=== PATIENT | male | born 1945 | race Caucasian/White ===

== ENCOUNTER 2023-09-21 14:18 | Emergency (ER) | payer OTHER ==
--- OUTSIDE RECORDS SUMMARY | 2023-09-21 14:21 | XMS REPORT | Continuity of Care Document ---
Author Name Unknown Address [address] [place] [address] [facility] thconnect Address [address] [place] [address] Care Team Providers Care Carton Maker Name Role [facility] Primary Car e Physician KIKI ASTUDILLO MEDICAID BILLING CLERK Attending Clinician Unavail able Doctor Unassigned, Shiro Attending Clinician U navailable RADIOLOGY Attending Clinician Unavailable Radiology Attending Clinician Unavailable Patricia Alberts Attending Clinician Unavailab MINI Post Admitting Clinician Unavailab le Payers Payer Name Policy Type Policy Number Effective Date Expirati on Date Source Allergies, Adverse Reactions, Alerts Allergy Name Allergy Type Status Severity Reaction(s) Onset Date Inactive Date Treating Clinician Comments Source NO KNOWN ALLERGIE S Drug Class Active [facility] Social History Social Habit Start Date Stop Date Quantity Comments Source Sexual orientation [facility] Sex Assigned At 1945 00:00:00 1945 00:00:00 [facility] Smoking Status Start Date Stop Date Source Tobacco smoking consumption unknown [facility] Procedures Procedure Date / Time Performed Performing Clinician Source AUTHORIZATION FOR RELEASE OF PHI 2023-06-03 06:01:00 Doctor Unassigned, Shiro [facility] AUTHORIZATION FOR RELEASE OF PHI 2023-06-01 06:01:00 Doctor Unassigned, Shiro [facility] MR LUMBAR SPINE WO CONTRAST 2023-05-31 22:05:33 Requisition, Paper [facility] Encounters Start Date/Time End Date/Time Encounter Type Admission Type Attending [facility] Care Department Encounter ID Source 2023-07-14 13:41:00 2023-07-14 13:41:00 Outpatient KIKI VASQUEZ [facility] [id number] [facility] 2023-06-03 00:00:00 2023-06-03 00:00:00 Orders Only Doctor Unassigned, Shiro [facility] [id number] [facility] 2023-06-01 00:00:00 2023-06-01 00:00:00 Orders Only Doctor Unassigned, Shiro [facility] [id number] [facility] 2023-05-31 15:08:26 2023-05-31 23:59:00 Outpatient R RADIOLOGY [facility] [id number] [facility] 2023-05-31 15:00:00 2023-05-31 23:59:00 Hospital Encounter Radiology [facility] [id number] [facility] 2023-03-18 14:30:00 2023-03-18 16:50:00 Emergency ER Patricia Alberts [facility] [id number] [facility] 2023-03-18 14:30:00 2023-03-18 16:50:00 emergency [facility] [id number] Results Test Description Test Time Test Comments Results Resul t Comments Source MR LUMBAR SPINE WO CONTRAST 9 22:23:07 MR LUMBAR SPINE WO CONTRAST HISTORY: ?Wo contrast COMPARISON: None. TECHNIQUE: MRI of the lumbar spine was done without contrast on 1.5 Teslamagnet. FINDINGS: Mild exaggeration of the normal lumbar lordosis. Grade I retrolisthesis ofL3 over L4 and L5 over S1 otherwise, the vertebral bodies are normal inheight and in alignment. The conus medullaris terminates at L1 level. Thecauda equina nerve roots are not crowded. Diffuse disc desiccation seen. There is mild to moderate disc height lossseen at L3-L4 and L5-S1. Multilevel scattered Schmorl's nodes. L5-S1 Modic type joint degeneration.Multilev el scattered small hemangiomas. The background marrow signal isotherwise unremarkable. L1-L2: Moderate facet arthrosis and ligamentum flavum thickening with nosignificant spinal canal stenosis or neural foraminal narrowing. L2-L3: Concentric disc bulge with right and left foraminal discprotrusions, moderate facet arthrosis and ligamentum flavum thickening thatresults in mild bilateral right more than left neural foraminal narrowingand mild spinal canal stenosis. Nonspecific bilateral facet joint effusion. L3-L4: Diffuse disc bulge with moderate facet arthrosis and ligamentumflavum thickening that results in moderate bilateral right more than leftneural foraminal narrowing and moderate spinal canal stenosis. L4-L5: Diffuse disc bulge asymmetric to the left superior facet arthrosisand ligamentum flavum thickening that results in mild to moderate spinalcanal stenosis, mild right and moderate left neural foraminal narrowing. L5-S1: Diffuse disc bulge with medium-sized left subarticular discprotrusion, moderate facet arthrosis that results in moderate left and mildright neural foraminal narrowing and no significant spinal canal stenosis.There is moderate left subarticular zone narrowing. Bilateral simple appearing renal cortical cysts seen. [facility]
[2023-09-21] MEDS ORDERED: NA CHLORIDE 0.9% 1,000 ML ONE (14:37)
[2023-09-21 14:46] LABS: Absolute Eosinophils 0.1 K/uL (0-0.5); Absolute Lymphocytes (CBC) 1.5 K/uL (0.7-4.9); Absolute Monocytes 0.5 K/uL (0.1-1.3); Absolute Neutrophil 2.8 K/uL (1.8-8.0); Basophils % 0.5 % (0-1.3); Eosinophils % 1.4 % (0-4.4); Hematocrit 39.7 % (39.6-49.0); Hemoglobin 13.5 g/dL (13.6-17.9); Lymphocytes % 31.2 % (15.3-44.8); MCH 29.9 pg (27.0-35.0); MCV 87.8 fL (80-100); MPV 9.6 fL (7.6-11.3); Monocytes % 9.4 % (3.3-12.3); Neutrophils % 57.5 % (41.7-73.7); Nucleated Red Blood Cells % 0.2 % (0-0); Platelets 150 thou/uL (152-406); RBC Red Blood Cell Count 4.52 M/uL (4.33-5.43); Red Cell Distribution Width 14.5 % (12.1-15.2)
[2023-09-21 14:47] LABS: PT Prothrombin Time 11.6 SECONDS (9.5-12.5); Protime INR 1.06
--- NOTE | 2023-09-21 15:08 | RAD REPORT ---
EXAM DESCRIPTION: RAD - Chest Single View - 09/21/2023 2:57 pm CLINICAL HISTORY: syncope Chest pain. COMPARISON: No comparisons FINDINGS: Portable technique limits examination quality. The lungs are mildly emphysematous but grossly clear. The heart is normal in size. No displaced fract ures. IMPRESSION: No acute intrathoracic process suspected.
[2023-09-21 15:21] LABS: Albumin 3.5 g/dL (3.4-5.0); Albumin/Globulin Ratio 1.3 (1.1-1.8); Bilirubin Direct 0.4 mg/dL (0-0.2); Bilirubin Indirect, Calculated 1.2 mg/dL (0.2-0.8); Bilirubin Total 1.6 mg/dL (0.2-1.0); Globulin 2.8 g/dL (2.3-3.5); Magnesium 2.1 mg/dL (1.6-2.4); Protein, Total 6.3 g/dL (6.4-8.2); Troponin High Sensitivity 4.8 pg/mL (<58.9)
--- NOTE | 2023-09-21 15:23 | RAD REPORT ---
EXAM DESCRIPTION: CT - Head Brain Wo Cont - 09/21/2023 3:15 pm CLINICAL HISTORY: SYNCOPE Headache, drowsiness, visual disturbance. COMPARISON: No comparisons TECHNIQUE: All CT scans are performed using dose optimization technique as appropriate and may inclu de automated exposure control or mA/KV adjustment according to patient size. FINDINGS: No intracranial hemorrhage, hydrocephalus or extra-axial fluid collection.No areas of brai n edema or evidence of midline shift. Mild vertebral atherosclerosis. The paranasal sinuses and mastoids are clear. The calvarium is intact. IMPRESSION: No acute intracranial abnormality.
--- NOTE | 2023-09-21 16:01 | ER ---
Nurse's Notes [facility] Name: Steven Joseph Age: 77 yrs Sex: Male : 1945 Arrival Date: 09/21/2023 Time: 14:18 Bed 4 Private MD: Diagnosis: Near syncope, dehydration Presentation: 09/20 14:21 Chief complaint: Patient states: Vision problems "seeing purple" while at [place] [id number] resolved by now. Generalized weakness. States it did happened yesterday around the same time but seemed to resolved quicker. 14:21 Coronavirus screen: Vaccine status: Patient reports receiving the 2nd dose of the covid nj1 vaccine. Ebola Screen: Patient denies travel to an Ebola-affected area in the 21 days before illness onset. Initial Sepsis Screen: Does the patient meet any 2 criteria? No. Patient's initial sepsis screen is negative. Does the patient have a suspected source of infection? No. Patient's initial sepsis screen is negative. Risk Assessment: Do you want to hurt yourself or someone else? Patient reports no desire to harm self or others. Onset of symptoms was September 20, 2023. 14:21 Method Of Arrival: Wheelchair nj 14:21 Acuity: DINAH 2 nj1 Historical: - Allergies: 14:33 No Known Allergies; nj1 - PMHx: 14:33 Hypertensive disorder; Diabetes mellitus; nj1 14:33 Neuropathy; Hypercholesterolemia; nj1 - Immunization history:: Client reports receiving the 2nd dose of the Covid vaccine. - Infectious Disease History:: Denies. - Social history:: Smoking status: Patient denies any tobacco usage or history of. Screenin:20 [facility] ED Fall Risk Assessment (Adult) History of falling in the last 3 months, kc6 including since admission No falls in past 3 months (0 pts) Confusion or Disorientation No (0 pts) Intoxicated or Sedated No (0 pts) Impaired Gait No (0 pts) Mobility Assist Device Used No (0 pt) Altered Elimination No (0 pt) Score/Fall Risk Level 0 - 2 = Low Risk. Abuse screen: Denies threats or abuse. Denies injuries from another. Nutritional screening: No deficits noted. Tuberculosis screening: No symptoms or risk factors identified. Assessment: 14:20 General: Appears in no apparent distress. comfortable, well groomed, well developed, kc6 Behavior is calm, cooperative, appropriate for age. Pain: Denies pain. Neuro: Level of Consciousness is awake, alert, obeys commands, Oriented to person, place, time, situation, Appropriate for age Hydraulic Assembler are equal bilaterally Moves all extremities. Full function Gait is steady, Speech is normal, Facial symmetry appears normal, Pupils are PERRLA, Intact Babinski is positive Reports blurred vision dizziness, a syncopal episode weakness. Cardiovascular: Denies chest pain, Heart tones S1 S2 present Capillary refill < 3 seconds. Respiratory: Airway is patent Trachea midline Respiratory effort is even, unlabored, Respiratory pattern is regular, symmetrical. GI: No signs and/or symptoms were reported involving the gastrointestinal system. : No signs and/or symptoms were reported regarding the genitourinary system. EENT: No signs and/or symptoms were reported regarding the EENT system. Derm: No signs and/or symptoms reported regarding the dermatologic system. Skin is intact, is healthy with good turgor, Skin is dry, Skin is pale, Skin temperature is warm. Musculoskeletal: No signs and/or symptoms reported regarding the musculoskeletal system. Circulation, motion, and sensation intact. Capillary refill < 3 seconds, Range of motion: intact in all extremities. 14:23 Reassessment: Dr. Owusu notified of pts BP 70/47. verbal orders received to admin 1L kc6 bolus of NS. 14:51 Reassessment: pt reports not taking his BP this AM before taking his BP medicine. pt to kc6 CT via stretcher. Vital Signs: 14:21 BP 133 / 101; Pulse 57; Resp 18; Temp 96.9(TE); Pulse Ox 98% on R/A; Weight 107.95 kg; nj1 Height 5 ft. 9 in. ; 14:23 BP 70 / 47; Pulse 55; Resp 16 S; Pulse Ox 97% on R/A; kc6 14:25 BP 73 / 58; Pulse 53; Resp 16 S; Pulse Ox 96% on R/A; kc6 14:30 BP 86 / 50; Pulse 52; Resp 14 S; Pulse Ox 97% on R/A; kc6 14:50 BP 90 / 54; Pulse 57; Resp 16 S; Temp 97.8(O); Pulse Ox 96% on R/A; Pain 0/10; kc6 15:25 BP 103 / 53; Pulse 52; Resp 16; Pulse Ox 97% ; ko1 15:28 BP 101 / 54 RA Supine (man/reg); Pulse 48; kc6 15:28 BP 94 / 55 RA Sitting (auto/reg); Pulse 52; kc6 15:28 BP 103 / 53 RA Standing (auto/reg); Pulse 54; kc6 14:21 Body Mass Index 35.15 (107.95 kg, 175.26 cm) nj1 14:50 Pain Scale: Adult kc6 ED Course: 14:18 Patient arrived in ED. im 14:20 Inserted saline lock: 20 gauge in right forearm, using aseptic technique. Blood kc6 collected. 14:20 Patient has correct armband on for positive identification. Placed in gown. Bed in low kc6 position. Call light in reach. Side rails up X2. Adult w/ patient. Client placed on continuous cardiac and pulse oximetry monitoring. NIBP monitoring applied. eeg tech on. Door closed. Noise minimized. Lights dimmed. Pillow given. 14:22 Promise Owusu MD is Attending Physician. sp3 14:23 Montserrat Rowan, RN is Primary Nurse. kc6 14:31 EKG done, by ED staff, reviewed by Promise Owusu MD. em1 14:33 Triage completed. nj1 14:35 Arm band placed on. nj1 14:59 XRAY Chest (1 view) In Process Unspecified. EDMS 15:16 CT Head Brain wo Cont In Process Unspecified. EDMS 15:25 Provided Education on: call light. ko1 16:18 No provider procedures requiring assistance completed. IV discontinued, intact, kc6 bleeding controlled, No redness/swelling at site. Pressure dressing applied. Administered Medications: 14:40 Drug: NS 0.9% IV 1000 ml IV at 1 bolus Per protocol; 1000 mL bolus Route: IV; Rate: 1 kc6 bolus; Site: right forearm; 16:07 Follow up: Response: No adverse reaction; IV Status: Completed infusion; IV Intake: kc6 1000ml Medication: 15:25 VIS not applicable for this client. ko1 Intake: 16:07 IV: 1000ml; Total: 1000ml. kc6 Outcome: 16:01 Discharge ordered by . sp3 16:18 Discharged to home via wheelchair, with family, with significant other, kc6 16:18 Condition: improved 16:18 Discharge instructions given to patient, family, significant other, Instructed on discharge instructions, follow up and referral plans. Demonstrated understanding of instructions, follow-up care, 16:18 Patient left the ED. kc6 Signatures: Dispatcher [employer] Herbert Mancia em1 Promise Owusu MD MD sp3 Montserrat Rowan, RN RN kc6 Cristel Reeves RN RN ko1 Karon Cardona RN RN nj1 Leigh Ann Stuart
--- NOTE | 2023-09-21 16:01 | EDPHYS ---
Physician Documentation [facility] Name: Steven Joseph Age: 77 yrs Sex: Male : 1945 Arrival Date: 09/21/2023 Time: 14:18 Bed 4 Private MD: ED Physician Promise Owusu HPI: 09/20 15:03 This 77 yrs old Male presents to ER via Wheelchair with complaints of Near Syncope. 3 15:03 77-year-old male with history of hypertension, diabetes, hyperlipidemia presents to the [facility] ED with chief complaint near syncope since a.m. this morning. Patient denies any chest pain, shortness of breath, trauma, headache, prior TIA/CVA, being on any anticoagulants, abdominal pain, vomiting, diarrhea, rash, bleeding, or any other signs or symptoms on ROS at this time. He states that when he gets up he feels lightheaded and feels like he is going to pass out.. Historical: - Allergies: 14:33 No Known Allergies; nj1 - PMHx: 14:33 Hypertensive disorder; Diabetes mellitus; nj1 14:33 Neuropathy; Hypercholesterolemia; nj1 - Immunization history:: Client reports receiving the 2nd dose of the Covid vaccine. - Infectious Disease History:: Denies. - Social history:: Smoking status: Patient denies any tobacco usage or history of. ROS: 15:04 Constitutional: Negative for fever, chills, and weight loss, Eyes: Negative for injury, sp3 pain, redness, and discharge, ENT: Negative for injury, pain, and discharge, Neck: Negative for injury, pain, and swelling, Respiratory: Negative for shortness of breath, cough, wheezing, and pleuritic chest pain, Abdomen/GI: Negative for abdominal pain, nausea, vomiting, diarrhea, and constipation, Back: Negative for injury and pain, MS/Extremity: Negative for injury and deformity, Skin: Negative for injury, rash, and discoloration, Psych: Negative for depression, anxiety, suicide ideation, homicidal ideation, and hallucinations, Allergy/Immunology: Negative for hives, rash, and allergies, Endocrine: Negative for neck swelling, polydipsia, polyuria, polyphagia, and marked weight changes, Hematologic/Lymphatic: Negative for swollen nodes, abnormal bleeding, and unusual bruising, 15:04 All other systems are negative, Exam: 15:04 Constitutional: This is a well developed, well nourished patient who is awake, alert, sp3 and in no acute distress. Head/Face: Normocephalic, atraumatic. Eyes: Pupils equal round and reactive to light, extra-ocular motions intact. Lids and lashes normal. Conjunctiva and sclera are non-icteric and not injected. Cornea within normal limits. Periorbital areas with no swelling, redness, or edema. ENT: Nares patent. No nasal discharge, no septal abnormalities noted. External auditory canals are clear. Oropharynx with no redness, swelling, or masses, exudates, or evidence of obstruction, uvula midline. Mucous membranes moist. Neck: Trachea midline, no thyromegaly or masses palpated, and no cervical lymphadenopathy. Supple, full range of motion without nuchal rigidity, or vertebral point tenderness. No Meningismus. Chest/axilla: Normal chest wall appearance and motion. Nontender with no deformity. No lesions are appreciated. Cardiovascular: Regular rate and rhythm with a normal S1 and S2. No gallops, murmurs, or rubs. Normal PMI, no JVD. No pulse deficits. Respiratory: Lungs have equal breath sounds bilaterally, clear to auscultation and percussion. No rales, rhonchi or wheezes noted. No increased work of breathing, no retractions or nasal flaring. Abdomen/GI: Soft, non-tender, with normal bowel sounds. No distension or tympany. No guarding or rebound. No evidence of tenderness throughout. Back: No spinal tenderness. No costovertebral tenderness. Full range of motion. Skin: Warm, dry with normal turgor. Normal color with no rashes, no lesions, and no evidence of cellulitis. MS/ Extremity: Pulses equal, no cyanosis. Neurovascular intact. Full, normal range of motion. Neuro: Awake and alert, GCS 15, oriented to person, place, time, and situation. Cranial nerves II-XII grossly intact. Motor strength 5/5 in all extremities. Sensory grossly intact. Cerebellar exam normal. Normal gait. Psych: Awake, alert, with orientation to person, place and time. Behavior, mood, and affect are within normal limits. 15:04 ECG was reviewed by the Attending Physician. EKG demonstrates normal sinus rhythm at 60 bpm with normal intervals, normal QRS, normal axis, normal ST's ST segments without evidence of acute ischemia. Vital Signs: 14:21 BP 133 / 101; Pulse 57; Resp 18; Temp 96.9(TE); Pulse Ox 98% on R/A; Weight 107.95 kg; nj1 Height 5 ft. 9 in. ; 14:23 BP 70 / 47; Pulse 55; Resp 16 S; Pulse Ox 97% on R/A; kc6 14:25 BP 73 / 58; Pulse 53; Resp 16 S; Pulse Ox 96% on R/A; kc6 14:30 BP 86 / 50; Pulse 52; Resp 14 S; Pulse Ox 97% on R/A; kc6 14:50 BP 90 / 54; Pulse 57; Resp 16 S; Temp 97.8(O); Pulse Ox 96% on R/A; Pain 0/10; kc6 15:25 BP 103 / 53; Pulse 52; Resp 16; Pulse Ox 97% ; ko1 15:28 BP 101 / 54 RA Supine (man/reg); Pulse 48; kc6 15:28 BP 94 / 55 RA Sitting (auto/reg); Pulse 52; kc6 15:28 BP 103 / 53 RA Standing (auto/reg); Pulse 54; kc6 14:21 Body Mass Index 35.15 (107.95 kg, 175.26 cm) nj1 14:50 Pain Scale: Adult kc6 MDM: 15:05 Data reviewed: vital signs, nurses notes, lab test result(s), EKG, radiologic studies. sp3 ED course: 77-year-old male with near syncope and lightheadedness. Differential diagnosis includes orthostatic hypotension, ACS spectrum, TIA/CVA, electrolyte abnormality, viral syndrome, among others. I am not highly concerned about TIA/CVA spectrum or ACS given my exam and EKG. CT scan of the head laboratory values are pending. Blood pressure is improved after IV fluids and is now at 90/54. Disposition pending workup and patient course.. 15:16 Patient medically screened. sp3 15:52 ED course: Orthostatics now normal and blood pressures improved after 1 L normal sp3 saline. Patient feels completely better with no symptoms whatsoever. Workup is negative including CT scan of the head and all labs and EKG. Will safely discharge patient home at this time.. 09/20 14:28 Order name: Basic Metabolic Panel; Complete Time: 15:22 sp3 09/20 14:28 Order name: CBC with Diff; Complete Time: 15:13 sp3 09/20 14:28 Order name: LFT's; Complete Time: 15:22 sp3 09/20 14:28 Order name: Magnesium; Complete Time: 15:22 sp3 09/20 14:28 Order name: NT PRO-BNP; Complete Time: 15:22 sp3 09/20 14:28 Order name: PT-INR; Complete Time: 15:13 sp3 09/20 14:28 Order name: Troponin HS; Complete Time: 15:22 sp3 09/20 14:41 Order name: Glucose, Ancillary Testing; Complete Time: 15:13 EDMS 09/20 14:28 Order name: XRAY Chest (1 view); Complete Time: 15:13 sp3 09/20 14:28 Order name: CT Head Brain wo Cont; Complete Time: 15:47 sp3 09/20 14:28 Order name: Cardiac monitoring; Complete Time: 14:36 sp3 09/20 14:28 Order name: EKG - Nurse/Tech; Complete Time: 14:31 sp3 09/20 14:28 Order name: IV Saline Lock; Complete Time: 14:36 sp3 09/20 14:28 Order name: Labs collected and sent; Complete Time: 14:36 sp3 09/20 14:28 Order name: O2 Per Protocol; Complete Time: 14:36 sp3 09/20 14:28 Order name: O2 Sat Monitoring; Complete Time: 14:36 sp3 09/20 15:06 Order name: Orthostatics; Complete Time: 15:28 sp3 Administered Medications: 14:40 Drug: NS 0.9% IV 1000 ml IV at 1 bolus Per protocol; 1000 mL bolus Route: IV; Rate: 1 kc6 bolus; Site: right forearm; 16:07 Follow up: Response: No adverse reaction; IV Status: Completed infusion; IV Intake: kc6 1000ml Disposition Summary: 09/21/23 16:01 Discharge Ordered Notes: Location: Home sp3 Condition: Stable sp3 Diagnosis - Near syncope, dehydration sp3 Followup: sp3 - With: Private Physician - When: Upon discharge from the Emergency Department - Reason: Continuance of care Discharge Instructions: - Discharge Summary Sheet sp3 - Near-Syncope sp3 Forms: - Medication Reconciliation Form sp3 - Antibiotic Education sp3 - Prescription Opioid Use sp3 - Patient Portal Instructions sp3 - Leadership Thank You Letter sp3 Signatures: Dispatcher [employer] EDMS Promise Owusu MD MD sp3 Montserrat Rowan, RN RN kc6 Karon Cardona RN RN nj1 Corrections: (The following items were deleted from the chart) 14: 14:29 BASIC METABOLIC PANEL+C.LAB.BRZ ordered. EDMS EDMS 14: 14:29 CBC+H.LAB.BRZ ordered. EDMS EDMS 14: 14:29 HEPATIC FUNCTION+C.LAB.BRZ ordered. EDMS EDMS 14: 14:29 MAGNESIUM+C.LAB.BRZ ordered. EDMS EDMS 14: 14:29 PROBNP+C.LAB.BRZ ordered. EDMS EDMS 14: 14:29 PROTIME (+INR)+COAG.LAB.BRZ ordered. EDMS EDMS 14: 14:29 Troponin High Sensitivity+C.LAB.BRZ ordered. EDMS EDMS 14:29 14:29 Chest Single View+RAD.RAD.BRZ ordered. EDMS EDMS 14:29 14:29 Head Brain Wo Cont+CT.RAD.BRZ ordered. EDMS EDMS
[2023-09-21 16:51] VITALS: BP 103/53; TEMP 97.8; O2SAT 97
--- NOTE | 2023-09-22 13:28 | EKG ---
Test Date: 2023-09-21 Test Time: 14:25:52 Sat Instructor: GOSIA MEASUREMENT RESULTS: Intervals: Rate: 57 CA: 194 QRSD: 98 QT: 442 QTc: 430 [place]: P: 68 CA: 194 QRS: 34 T: 49 INTERPRETIVE STATEMENTS: Sinus bradycardia Otherwise normal ECG No previous ECG available for comparison Electronically Signed On 09-22-23 13:26:54 CDT by [place]
== END 2023-09-21 16:18 | disposition home or self-care (01) ==
LOC: ER 14:18
DX: R55 Syncope and collapse (principal); E86.0 Dehydration; E11.9 Type 2 diabetes mellitus without complications; I10 Essential (primary) hypertension
CPT/HCPCS: 85025; 80048; 36415; 83735; 85610; 82947; 80076; 84484; 83880; 70450; 71045; J7030; 93005; 96360; 99285

== ENCOUNTER 2024-04-02 13:13 | Emergency (ER) | payer OTHER ==
--- OUTSIDE RECORDS SUMMARY | 2024-04-02 13:16 | XMS REPORT | Continuity of Care Document ---
Author Name Unknown Address [address] [place] [address] [facility] thconnect Address [address] [place] [address] Care Team Providers Care Clinical Trials Specialist Name Role [facility], [facility] Primary Car e Physician Unavailable JED APPLE Attending Clinician Unavailable KIKI ASTUDILLO CAMP HEAD COUNSELOR Attending Clinician Unavail able Doctor Unassigned, Mamou Attending Clinician U navailable RADIOLOGY Attending Clinician Unavailable Radiology Attending Clinician Unavailable Patricia Alberts Attending Clinician Unavailab le MINI KELLEY Admitting Clinician Unavailab le Payers Payer Name Policy Type Policy Number Effective Date Expirati on Date Source [facility] [id number] 2015 00:00:00 Allergies, Adverse Reactions, Alerts Allergy Name Allergy Type Status Severity Reaction(s) Onset Date Inactive Date Treating Clinician Comments Source NO KNOWN ALLERGIE S Drug Class Active [facility] Social History Social Habit Start Date Stop Date Quantity Comments Source Sexual orientation [facility] Sex Assigned At 1945 00:00:00 1945 00:00:00 [facility] Smoking Status Start Date Stop Date Source Tobacco smoking consumption unknown [facility] Procedures Procedure Date / Time Performed Performing Clinician Source AUTHORIZATION FOR RELEASE OF PHI 2023-06-03 06:01:00 Doctor Unassigned, Mamou [facility] AUTHORIZATION FOR RELEASE OF PHI 2023-06-01 06:01:00 Doctor Unassigned, Mamou [facility] MR LUMBAR SPINE WO CONTRAST 2023-05-31 22:05:33 Requisition, Paper [facility] Encounters Start Date/Time End Date/Time Encounter Type Admission Type Attending Clinicians Care Facility Care Department Encounter ID Source 2023-12-09 13:00:00 2023-12-09 13:00:00 Outpatient JED SUBRAMANIAN [facility] [id number] [facility] 2023-11-25 14:30:00 2023-11-25 14:30:00 Outpatient JED SUBRAMANIAN [facility] [id number] [facility] 2023-07-14 13:41:00 2023-07-14 13:41:00 Outpatient KIKI VASQUEZ [facility] [id number] [facility] 2023-06-03 00:00:00 2023-06-03 00:00:00 Orders Only Doctor Unassigned, Mamou [place] [id number] [facility] 2023-06-01 00:00:00 2023-06-01 00:00:00 Orders Only Doctor Unassigned, Mamou [id number] [facility] 2023-05-31 15:08:26 2023-05-31 23:59:00 Outpatient Justina CAMARENA [facility] [id number] [facility] 2023-05-31 15:00:00 2023-05-31 23:59:00 Hospital Encounter Radiology [facility] [id number] [facility] 2023-03-18 14:30:00 2023-03-18 16:50:00 Emergency ER Patricia Alberts [facility] [id number] [facility] 2023-03-18 14:30:00 2023-03-18 16:50:00 emergency [facility] [id number] Results Test Description Test Time Test [...] Bilateral simple appearing renal cortical cysts seen. [facility]
[2024-04-02] MEDS ORDERED: NA CHLORIDE 0.9% 2,000 ML ONE (14:41)
[2024-04-02 15:19] LABS: Absolute Monocytes 0.6 K/uL (0.1-1.3); Absolute Neutrophil 3.2 K/uL (1.8-8.0); Basophils % 0.4 % (0-1.3); Hematocrit 42.7 % (39.6-49.0); Hemoglobin 14.1 g/dL (13.6-17.9); Lymphocytes % 20.7 % (15.3-44.8); MCH 30.3 pg (27.0-35.0); MCHC 32.9 g/dL (32.0-36.0); MCV 92.2 fL (80-100); MPV 9.4 fL (7.6-11.3); Monocytes % 11.6 % (3.3-12.3); Neutrophils % 66.3 % (41.7-73.7); Platelets 156 thou/uL (152-406); RBC Red Blood Cell Count 4.63 M/uL (4.33-5.43); Red Cell Distribution Width 14.4 % (12.1-15.2); Specific Gravity 1.022 (1.005-1.030); Sqamous Epithelial None Seen /HPF (None Seen); Urine Bacteria None Seen /HPF (<20); Urine Bilirubin NEGATIVE (Negative); Urine Blood Negative (Negative); Urine Clarity Clear (Clear); Urine Color Light-Yellow (Yellow); Urine Crystals Unidentified Few /HPF (None Seen); Urine Culture Reflex Order NOT NEEDED; Urine Glucose 4+ (Over) (Negative); Urine Ketones NEGATIVE (Negative); Urine Microscopic Reflex YN ORDER UMIC; Urine Nitrite NEGATIVE (Negative); Urine Protein NEGATIVE (Negative); Urine RBC <5 /HPF (None Seen); Urine Urobilinogen Normal (Normal); Urine WBC <5 /HPF (<5)
[2024-04-02 15:23] LABS: PT Prothrombin Time 11.2 SECONDS (9.4-12.5); PTT, Activated Partial Thromb 33.6 SECONDS (24.3-36.9)
[2024-04-02 15:34] LABS: ALT/SGPT 20 U/L (16-61); Albumin 3.4 g/dL (3.4-5.0); Albumin/Globulin Ratio 1.1 (1.1-1.8); Alkaline Phosphatase 78 U/L (45-117); Anion Gap 9.6 mEq/L (5.0-15.0); BUN Blood Urea Nitrogen 26 mg/dL (7-18); Bicarbonate 28 mEq/L (21-32); Bilirubin Total 1.2 mg/dL (0.2-1.0); Glomerular Filtration Rate 74 ml/min (=/>90); Glucose Level 144 mg/dL (74-106); Potassium 3.6 mEq/L (3.5-5.1); Protein, Total 6.4 g/dL (6.4-8.2); Sodium Level 140 mEq/L (136-145)
[2024-04-02 15:36] LABS: AST/SGOT < 10 U/L (15-37)
--- NOTE | 2024-04-02 17:02 | EDPHYS ---
Physician Documentation [facility] Name: Steven Joseph Age: 78 yrs Sex: Male : 1945 Arrival Date: 04/02/2024 Time: 13:13 Bed 18 Private MD: ED Physician Tere Adams HPI: 04/02 17:02 This 78 yrs old Male presents to ER via Wheelchair with complaints of Low BP. gb1 17:02 78-year-old male with dizziness and feeling like his blood pressure was low. He has a gb1 history of bradycardia for which he sees a customer service associate in town does have a history of diabetes, hyperlipidemia and hypertension. He denies any chest pain or shortness of breath and did not fall or have a head strike.. Historical: - Allergies: 13:45 GABAPENTIN; ss - PMHx: 13:45 diabetes mellitus; Hypercholesterolemia; Hypertensive disorder; neuropathy; ss - Infectious Disease History:: Denies. - Social history:: Smoking status: Patient denies any tobacco usage or history of. Exam: 17:02 Constitutional: This is a well developed, well nourished patient who is awake, alert, gb1 and in no acute distress. Head/Face: Normocephalic, atraumatic. Eyes: Pupils equal round and reactive to light, extra-ocular motions intact. Lids and lashes normal. Conjunctiva and sclera are non-icteric and not injected. Cornea within normal limits. Periorbital areas with no swelling, redness, or edema. ENT: Nares patent. No nasal discharge, no septal abnormalities noted. Tympanic membranes are normal and external auditory canals are clear. Oropharynx with no redness, swelling, or masses, exudates, or evidence of obstruction, uvula midline. Mucous membranes moist. Neck: Trachea midline, no thyromegaly or masses palpated, and no cervical lymphadenopathy. Supple, full range of motion without nuchal rigidity, or vertebral point tenderness. No Meningismus. Chest/axilla: Normal chest wall appearance and motion. Nontender with no deformity. No lesions are appreciated. Cardiovascular: Bradycardic rate and rhythm with a normal S1 and S2. No gallops, murmurs, or rubs. Normal PMI, no JVD. No pulse deficits. Respiratory: Lungs have equal breath sounds bilaterally, clear to auscultation and percussion. No rales, rhonchi or wheezes noted. No increased work of breathing, no retractions or nasal flaring. Abdomen/GI: Soft, non-tender, with normal bowel sounds. No distension or tympany. No guarding or rebound. No evidence of tenderness throughout. Skin: Warm, dry with normal turgor. Normal color with no rashes, no lesions, and no evidence of cellulitis. MS/ Extremity: Pulses equal, no cyanosis. Neurovascular intact. Full, normal range of motion. Neuro: Awake and alert, GCS 15, oriented to person, place, time, and situation. Cranial nerves II-XII grossly intact. Motor strength 5/5 in all extremities. Sensory grossly intact. Cerebellar exam normal. Normal gait. Vital Signs: 13:43 BP 76 / 48; Pulse 50; Resp 16; Temp 98.7(O); Pulse Ox 95% on R/A; Weight 102.06 kg; ss Height 5 ft. 9 in. ; Pain 0/10; 13:51 BP 81 / 57; Pulse 46; ss 15:00 BP 103 / 61; Pulse 44; Resp 16; Pulse Ox 95% ; bp 16:00 BP 109 / 69; Pulse 49; Resp 16; Pulse Ox 95% ; bp 17:16 BP 121 / 75; Pulse 47; Resp 16; Pulse Ox 96% ; bp 13:43 Body Mass Index 33.23 (102.06 kg, 175.26 cm) ss 13:43 Pain Scale: Adult ss MDM: 13:43 Medical Screening Exam initiated gb1 17:02 Data reviewed: vital signs, nurses notes. ED course: 78-year-old male with a history of gb1 bradycardic rhythm has an appointment with Dr. Mcmahan for an AICD. Patient has no chest pain or shortness of breath and he did appear to be mildly dehydrated with a liter of IV fluids clinically improved. I do recommend the patient follow-up he does not appear septic at this time I doubt acute coronary syndrome or focal pneumonia patient appears well with his and his EKG shows sinus bradycardia cardia with a first-degree AV block. And some nonspecific ST-T wave CHANGES.. 04/02 14:31 Order name: CBC with Diff; Complete Time: 15:40 gb1 04/02 14:31 Order name: CMP; Complete Time: 15:40 04/02 14:31 Order name: Lactate w/ 2H reflex if indic.; Complete Time: 15:40 04/02 14:31 Order name: Protime (+inr); Complete Time: 15:40 04/02 14:31 Order name: Ptt, Activated; Complete Time: 15:40 04/02 14:31 Order name: Urinalysis w/ reflexes; Complete Time: 15:40 04/02 14:31 Order name: Accucheck; Complete Time: 15:25 04/02 14:31 Order name: Cardiac monitoring; Complete Time: 15:26 04/02 14:31 Order name: EKG - Nurse/Tech; Complete Time: 15:26 04/02 14:31 Order name: IV Saline Lock - Large Bore; Complete Time: 15:26 04/02 14:31 Order name: Labs collected and sent; Complete Time: 15:26 04/02 14:31 Order name: O2 Per Protocol; Complete Time: 14:37 04/02 14:31 Order name: O2 Sat Monitoring; Complete Time: 14:37 04/02 14:31 Order name: Vital Signs; Complete Time: 14:37 gb Administered Medications: 15:15 Drug: NS 0.9% IV (30 ml/kg) 30 ml/kg IV at bolus once; Sepsis Protocol; to be given as bp a bolus over 90 minutes Route: IV; Rate: bolus; Site: right forearm; 17:17 Follow up: IV Status: Completed infusion bp Disposition Summary: 04/02/24 17:01 Discharge Ordered Notes: Location: Home gb1 Condition: Stable gb1 Diagnosis - Bradycardia, unspecified gb1 - Dehydration gb1 Followup: gb1 - With: Private Physician - When: - Reason: Recheck today's complaints Discharge Instructions: - Discharge Summary Sheet gb1 - Near-Syncope gb1 Forms: - Medication Reconciliation Form gb1 - Antibiotic Education gb1 - Prescription Opioid Use gb1 - Patient Portal Instructions gb1 - Leadership Thank You Letter gb1 Signatures: Dispatcher [employer] Snea Paez RN RN Abbe Washington RN RN Tere Ortiz MD MD gb1 Corrections: (The following items were deleted from the chart) 13:45 13:45 Allergies: No Known Allergies; ss ss 14:32 14:32 BLOOD CULTURE*+BA.LAB.BRZ ordered. EDMS EDMS 14:32 14:32 CBC+H.LAB.BRZ ordered. EDMS EDMS 14:32 14:32 COMPREHENSIVE METABOLIC PANEL+C.LAB.BRZ ordered. EDMS EDMS 14:32 14:32 LACTATE+C.LAB.BRZ ordered. EDMS EDMS 14:32 14:32 PROTIME (+INR)+COAG.LAB.BRZ ordered. EDMS EDMS 14:32 14:32 PTT, ACTIVATED+COAG.LAB.BRZ ordered. EDMS EDMS 14:32 14:32 Urinalysis+U.LAB.BRZ ordered. EDMS EDMS
--- NOTE | 2024-04-02 17:02 | ER ---
Nurse's Notes [facility] Name: Steven Joseph Age: 78 yrs Sex: Male : 1945 Arrival Date: 04/02/2024 Time: 13:13 Bed 18 Private MD: Diagnosis: Bradycardia, unspecified;Dehydration Presentation: 04/02 13:43 Chief complaint: Patient states: Not feeling well while at [place] 30 minutes ago. Pt ss states, "This happened before and my blood pressure was low.". Coronavirus screen: Client denies travel out of the [place] in the last 14 days. Ebola Screen: Patient denies exposure to infectious person. Patient denies travel to an Ebola-affected area in the 21 days before illness onset. Initial Sepsis Screen: Does the patient meet any 2 criteria? No. Patient's initial sepsis screen is negative. Does the patient have a suspected source of infection? No. Patient's initial sepsis screen is negative. Risk Assessment: Do you want to hurt yourself or someone else? Patient reports no desire to harm self or others. Onset of symptoms was April 02, 2024. 13:43 Method Of Arrival: Wheelchair ss 13:43 Acuity: DINAH 2 ss Triage Assessment: 13:45 General: Appears in no apparent distress. Behavior is calm, cooperative, appropriate bp for age. Pain: Denies pain. EENT: No deficits noted. Neuro: Reports dizziness. Cardiovascular: Rhythm is sinus bradycardia. Respiratory: No deficits noted. GI: No signs and/or symptoms were reported involving the gastrointestinal system. : No signs and/or symptoms were reported regarding the genitourinary system. Derm: No deficits noted. Musculoskeletal: No deficits noted. Historical: - Allergies: 13:45 GABAPENTIN; ss - PMHx: 13:45 diabetes mellitus; Hypercholesterolemia; Hypertensive disorder; neuropathy; ss - Infectious Disease History:: Denies. - Social history:: Smoking status: Patient denies any tobacco usage or history of. Screenin:00 [facility] ED Fall Risk Assessment (Adult) History of falling in the last 3 months, bp including since admission No falls in past 3 months (0 pts) Confusion or Disorientation No (0 pts) Intoxicated or Sedated No (0 pts) Impaired Gait No (0 pts) Mobility Assist Device Used No (0 pt) Altered Elimination No (0 pt) Score/Fall Risk Level 0 - 2 = Low Risk. Abuse screen: Denies threats or abuse. Denies injuries from another. Nutritional screening: No deficits noted. Tuberculosis screening: No symptoms or risk factors identified. Assessment: 13:45 General: Appears in no apparent distress. comfortable, Behavior is calm, cooperative, bp appropriate for age. 15:00 Reassessment: Patient appears in no apparent distress at this time. Patient is alert, bp oriented x 3, equal unlabored respirations, skin warm/dry/pink. 16:00 Reassessment: Patient appears in no apparent distress at this time. Patient is alert, bp oriented x 3, equal unlabored respirations, skin warm/dry/pink. Vital Signs: 13:43 BP 76 / 48; Pulse 50; Resp 16; Temp 98.7(O); Pulse Ox 95% on R/A; Weight 102.06 kg; ss Height 5 ft. 9 in. ; Pain 0/10; 13:51 BP 81 / 57; Pulse 46; ss 15:00 BP 103 / 61; Pulse 44; Resp 16; Pulse Ox 95% ; bp 16:00 BP 109 / 69; Pulse 49; Resp 16; Pulse Ox 95% ; bp 17:16 BP 121 / 75; Pulse 47; Resp 16; Pulse Ox 96% ; bp 13:43 Body Mass Index 33.23 (102.06 kg, 175.26 cm) ss 13:43 Pain Scale: Adult ss ED Course: 13:16 Patient arrived in ED. mr 13:20 Tere Adams MD is Attending Physician. gb1 13:45 Triage completed. ss 13:45 Arm band placed on right wrist. ss 13:47 Abbe Britt, RN is Primary Nurse. bp 15:00 Patient has correct armband on for positive identification. bp 15:15 Initial lab(s) drawn, by ct, sent to lab. EKG done, by ED staff, reviewed by Tere Adams MD. Inserted saline lock: 22 gauge in right forearm, using aseptic technique. Blood collected. Flushed with 10 mL NS. 17:15 No provider procedures requiring assistance completed. IV discontinued, intact, bp bleeding controlled, No redness/swelling at site. Pressure dressing applied. Administered Medications: 15:15 Drug: NS 0.9% IV (30 ml/kg) 30 ml/kg IV at bolus once; Sepsis Protocol; to be given as bp a bolus over 90 minutes Route: IV; Rate: bolus; Site: right forearm; 17:17 Follow up: IV Status: Completed infusion bp Outcome: 17:01 Discharge ordered by MD. [email or web address] 17:15 Discharged to home via wheelchair, with family, bp 17:15 Condition: stable 17:15 Discharge instructions given to patient, family, Instructed on discharge instructions, follow up and referral plans. Demonstrated understanding of instructions, follow-up care, 17:17 Patient left the ED. bp Signatures: Mini Mccall, Reg Reg mr Sena Zimmer, RN RN ss Abbe Britt, RN RN bp Angie, MD NAOMI Carranza gb1 Corrections: (The following items were deleted from the chart) 13:45 13:45 Allergies: No Known Allergies; [facility]
[2024-04-02 17:25] VITALS: TEMP 98.7
[2024-04-02 17:44] VITALS: BP 121/75; O2SAT 96
--- NOTE | 2024-04-03 08:53 | EKG ---
Test Date: 2024-04-02 Test Time: 14:54:49 Property Administrator: BP MEASUREMENT RESULTS: Intervals: Rate: 47 AR: 234 QRSD: 106 QT: 488 QTc: 431 [place]: P: 62 AR: 234 QRS: -10 T: 18 INTERPRETIVE STATEMENTS: Marked sinus bradycardia with 1st degree AV block Inferior infarct, age undetermined Abnormal ECG Compared to ECG 09/21/2023 14:25:52 First degree AV block now present Myocardial infarct finding now present Electronically Signed On 04-03-24 08:51:18 DEVELOPMENT COACH by Pratik Gonzalez
== END 2024-04-02 17:17 | disposition home or self-care (01) ==
LOC: ER 13:13
DX: R00.1 Bradycardia, unspecified (principal); E86.0 Dehydration; E11.9 Type 2 diabetes mellitus without complications; I10 Essential (primary) hypertension
CPT/HCPCS: 93005; 85025; 81001; 36415; 85610; 83605; 85730; 80053; J7030; 96365; 96366; 99284